=== PATIENT | male | born 1970 | race Caucasian/White ===

== ENCOUNTER 2018-04-03 12:48 | Emergency (ER) | payer MEDICAID ==
[~2018-04-03] VITALS: Wt 81.5 kg
--- NOTE | 2018-04-03 13:09 | ERD ---
ER Documentation Chief Complaint Chief Complaint bib self, anxiety HPI The patient is a 47-year-old male, presenting to the ER because he is very anxious, requesting medication otherwise he would hurt himself; he did not want to elaborate. He denies suicidal ideation, auditory/visual hallucination, headache, neck pain, chest pain, dyspnea, abdominal pain, vomiting, dizzy, diarrhea. He smokes a pack a day, drinks regularly, does amphetamine and cocaine He was previously hospitalized in psychiatric hospital about 7 years ago, he has been out of psychotropic medication including Vistaril, Xanax, Celexa for more than 6 months. Past medical history: PTSD, anxiety, depression ROS All systems reviewed and are negative except as per history of present illness. Medications Home Meds Active Scripts Citalopram Hydrobromide* (Celexa*) 20 Mg Tablet, 20 MG PO DAILY for 7 Days, #30 TAB Prov:TASHA KARIMI MD 04/03/18 Quetiapine Fumarate* (Seroquel*) 50 Mg Tablet, 50 MG PO QID for 7 Days, TAB Prov:TASHA KARIMI MD 04/03/18 Carbamazepine* (Carbamazepine*) 100 Mg Tab.chew, 200 MG PO BID for 7 Days, #60 TAB.CHEW Prov:TASHA KARIMI MD 04/03/18 Allergies Allergies: Coded Allergies: No Known Allergy (Unverified , 04/03/18) Physical Exam Vitals Vital Signs Date Temp Pulse Resp B/P (MAP) Pulse Ox O2 O2 Flow FiO2 Time Delivery Rate 04/03/18 68 20 119/67 99 Room Air 15:49 (84) 04/03/18 98.2 71 19 120/75 100 12:51 (90) Physical Exam Const: No acute distress. Head: Atraumatic. Eyes: Normal Conjunctiva. ENT: Normal External Ears, Nose and Mouth. Neck: Full range of motion. No meningismus. Resp: Clear to auscultation bilaterally. Cardio: Regular rate and rhythm. Abd: Soft, non distended, normal bowel sounds, non tender. Skin: No petechiae or rashes. Back: No midline or flank tenderness. Ext: No cyanosis, or edema. Neur: Awake and alert. No focal deficit Psych: Tangential, very anxious Result Diagram: 04/03/18 1326 04/03/18 1326 Results 24 hrs Laboratory Tests Test 04/03/18 13:26 04/03/18 14:20 White Blood Count 6.8 10^3/ul Red Blood Count 4.51 10^6/ul Hemoglobin 14.3 g/dl Hematocrit 43.2 % Mean Corpuscular Volume 95.8 fl Mean Corpuscular Hemoglobin 31.7 pg Mean Corpuscular Hemoglobin Concent 33.1 g/dl Red Cell Distribution Width 13.7 % Platelet Count 282 10^3/UL Mean Platelet Volume 8.8 fl Immature Granulocytes % 0.100 % Neutrophils % 54.7 % Lymphocytes % 31.4 % Monocytes % 8.6 % Eosinophils % 4.6 % Basophils % 0.6 % Nucleated Red Blood Cells % 0.0 /100WBC Immature Granulocytes # 0.010 10^3/ul Neutrophils # 3.7 10^3/ul Lymphocytes # 2.1 10^3/ul Monocytes # 0.6 10^3/ul Eosinophils # 0.3 10^3/ul Basophils # 0.0 10^3/ul Nucleated Red Blood Cells # 0.0 10^3/ul Sodium Level 142 mmol/L Potassium Level 3.8 mmol/L Chloride Level 106 mmol/L Carbon Dioxide Level 24 mmol/L Anion Gap 12 Blood Urea Nitrogen 9 mg/dl Creatinine 0.86 mg/dl Est Glomerular Filtrat Rate mL/min > 60 mL/min Glucose Level 101 mg/dl Calcium Level 9.2 mg/dl Total Bilirubin 0.9 mg/dl Direct Bilirubin 0.00 mg/dl Indirect Bilirubin 0.9 mg/dl Aspartate Amino Transf (AST/SGOT) 25 IU/L Alanine Aminotransferase (ALT/SGPT) 25 IU/L Alkaline Phosphatase 70 IU/L Total Protein 7.4 g/dl Albumin 4.2 g/dl Globulin 3.20 g/dl Albumin/Globulin Ratio 1.31 Salicylates Level < 1.0 mg/dl Acetaminophen Level < 10.0 ug/ml Ethyl Alcohol Level 46.0 mg/dl Urine Color COLORLESS Urine Clarity CLEAR Urine pH 6.0 Urine Specific [place] 1.002 Urine Ketones NEGATIVE mg/dL Urine Nitrite NEGATIVE mg/dL Urine Bilirubin NEGATIVE mg/dL Urine Urobilinogen NEGATIVE mg/dL Urine Leukocyte Esterase NEGATIVE Ced/ul Urine Hemoglobin NEGATIVE mg/dL Urine Glucose NEGATIVE mg/dL Urine Total Protein NEGATIVE mg/dl Urine Opiates Screen Negative Urine Barbiturates Negative Urine Amphetamines Screen Positive Urine Benzodiazepines Screen Negative Urine Cocaine Screen Positive Urine Cannabinoids Negative Procedures/MDM MEDICAL MAKING DECISION: The patient is a 47-year-old male, presenting with acute anxiety, substance abuse, alcohol abuse. The differential diagnoses considered include but are not limited to drug- induced psychosis, psychosis, anxiety attack, panic attack, decompensated psychiatric illness Consultation: The patient was evaluated by telepsychiatrist who recommended discharge the patient Departure Diagnosis: Primary Impression: Bipolar 1 disorder Additional Impressions: Substance abuse Alcohol abuse Condition: Good Comments He was assisted by public health social worker He was discharged with acute on, Seroquel, Celexa for 1 week as recommended by telepsychiatrist then follow-up with his psychiatrist for further evaluation and medication I discussed the findings with the patient. I advised the patient to follow-up with the primary physician in about 2-3 days, sooner if needed and return if any concern. Disclaimer: Inadvertent spelling and grammatical errors are likely due to EHR/dictation software use and do not reflect on the overall quality of patient care. Also, please note that the electronic time recorded on this note does not necessarily reflect the actual time of the patient encounter. TASHA KARIMI MD Apr 03, 2018 13:09
--- NOTE | 2018-04-03 14:55 | PSY ---
Date/Time of Note Date/Time of Note DATE: 04/03/18 TIME: 14:47 Psychiatric Subjective Eval Subjective Evaluation Patient location: emergency Chief Complaint: bib self, cc: ptsd and anxiety, untreated Reason for consult: Anxiety History of present illness This is a 47 year old male who presents with complaints of racing negative intrusive thoughts, generalized anxiety, feeling keyed up, irritable on edge, and has difficulty concentrating as well as falling and staying asleep. He had been doing fairly well on an antidepressant and mood stabilizer, but elected to stop medications several months ago. His symptoms described has since returned. He denies suicidal or homicidal ideation. He has a viable plan to care for himself. He is seeking medications. He has plans of getting back in to the psychiatric clinic in about 2 weeks. Past psychiatric history He has been treated for symptoms of anxiety and depression for about 12 year. His first psychiatric admission was 12 years ago. The next was about 18 months ago. Both were for symptoms of depression. He recalled that he was prescribed Citalopram, and did not recall the other medication. Hospitalization: yes Family History His mother has a history of a mental disorder. Medical history non contributory Allergies: Coded Allergies: No Known Allergy (Unverified , 04/03/18) Substance Abuse Substance use: No known substance abuse Social History Marital status: single Level of education: BA in [employer] science. 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 Psychiatric Objective Eval Review of Systems: Review of Systems: Applicable Constitutional: Normal Eyes: Normal ENT: Normal Neck: Normal Respiratory: Normal Chest/Breast: Normal Cardiovascular: Normal GI: Normal Genitourinary: Normal Skin: Normal Lymphatic: Normal Musculoskeletal: Normal Neurological: Normal Physical Examination: Physical Examination: Applicable Sleep: Insomnia, Terminal Appetite: Adequate Energy: Adequate Interest: Adequate Mental Status Examination: Appearance: Groomed Eye Contact: Good Psychomotor Activity: Normal Behavior: Friendly, Cooperative Speech: Clear AFFECT: Appropriate, Depressed, Anxious Mood: Appropriate/Full, Depressed, Anxious Though Process: Linear Thought Content: Normal Suicidal: No Homicidal: No On 72 hour hold: No Orientation: x4 Cognition: Alert Insight: Intact Judgement: Intact Attention Span: Intact Laboratory Results Laboratory Tests Test 04/03/18 13:26 04/03/18 14:20 White Blood Count 6.8 10^3/ul Red Blood Count 4.51 10^6/ul Hemoglobin 14.3 g/dl Hematocrit 43.2 % Mean Corpuscular Volume 95.8 fl Mean Corpuscular Hemoglobin 31.7 pg Mean Corpuscular Hemoglobin Concent 33.1 g/dl Red Cell Distribution Width 13.7 % Platelet Count 282 10^3/UL Mean Platelet Volume 8.8 fl Immature Granulocytes % 0.100 % Neutrophils % 54.7 % Lymphocytes % 31.4 % Monocytes % 8.6 % Eosinophils % 4.6 % Basophils % 0.6 % Nucleated Red Blood Cells % 0.0 /100WBC Immature Granulocytes # 0.010 10^3/ul Neutrophils # 3.7 10^3/ul Lymphocytes # 2.1 10^3/ul Monocytes # 0.6 10^3/ul Eosinophils # 0.3 10^3/ul Basophils # 0.0 10^3/ul Nucleated Red Blood Cells # 0.0 10^3/ul Sodium Level 142 mmol/L Potassium Level 3.8 mmol/L Chloride Level 106 mmol/L Carbon Dioxide Level 24 mmol/L Anion Gap 12 Blood Urea Nitrogen 9 mg/dl Creatinine 0.86 mg/dl Est Glomerular Filtrat Rate mL/min > 60 mL/min Glucose Level 101 mg/dl Calcium Level 9.2 mg/dl Total Bilirubin 0.9 mg/dl Direct Bilirubin 0.00 mg/dl Indirect Bilirubin 0.9 mg/dl Aspartate Amino Transf (AST/SGOT) 25 IU/L Alanine Aminotransferase (ALT/SGPT) 25 IU/L Alkaline Phosphatase 70 IU/L Total Protein 7.4 g/dl Albumin 4.2 g/dl Globulin 3.20 g/dl Albumin/Globulin Ratio 1.31 Salicylates Level < 1.0 mg/dl Acetaminophen Level < 10.0 ug/ml Ethyl Alcohol Level 46.0 mg/dl Urine Color COLORLESS Urine Clarity CLEAR Urine pH 6.0 Urine Specific [place] 1.002 Urine Ketones NEGATIVE mg/dL Urine Nitrite NEGATIVE mg/dL Urine Bilirubin NEGATIVE mg/dL Urine Urobilinogen NEGATIVE mg/dL Urine Leukocyte Esterase NEGATIVE Ced/ul Urine Hemoglobin NEGATIVE mg/dL Urine Glucose NEGATIVE mg/dL Urine Total Protein NEGATIVE mg/dl Assessment and Plan Assessment/Diagnosis Diagnosis F31.63 Bipolar disorder, mixed severe without psychotic features. Recommendation/Plan Medication Management Tegretol 200mg po bid for 1 week, then 400mg po bid thereafter. Obtain blood level on day 10. #100 Seroquel 50mg po every 6 hours prn racing thoughts #100 Celexa 20mg po daily #30 Multiple antipsychotics: No Discharge Disposition: Community (home) Legal Status: Voluntary KRYSTLE JOY MD Apr 03, 2018 14:55
[2018-04-03] MEDS ORDERED: CARB100T2 PO (15:26)
[2018-04-03] MEDS ORDERED: QUET50TA PO (15:26)
[2018-04-03] MEDS ORDERED: CITA20TA11 PO (15:27)
[2018-04-03 15:49] VITALS: BP 119/67; PULSE 68; RESP 20
== END 2018-04-03 16:14 | disposition home or self-care (01) ==
LOC: E/R 12:48
DX: F31.9 Bipolar disorder, unspecified (principal); F10.10 Alcohol abuse, uncomplicated; F15.10 Other stimulant abuse, uncomplicated; F14.10 Cocaine abuse, uncomplicated; F17.210 Nicotine dependence, cigarettes, uncomplicated
CPT/HCPCS: 80053; 80307; 81003; 85025; Z7502; 99283